=== PATIENT | male | born 1935 | race Caucasian/White ===

== ENCOUNTER 2018-10-20 09:10 | Outpatient (CLI) | payer MEDICARE, OTHER ==
[~2018-10-20] VITALS: Ht 177.8 cm; Wt 42.5 kg
[2018-10-20 09:49] LABS: HEMATOCRIT 38.3 % (42.0-52.0); HEMOGLOBIN 12.2 g/dl (13.5-18.0); MEAN CELL VOLUME 87 fl (80.0-100.0); MEAN CORPUSCULAR HEMOGLOBIN 28 pg (27.0-31.0); MEAN CORPUSCULAR HGB CONC 32 g/dl (33.0-37.0); MEAN PLATELET VOLUME 9.4 fl (7.4-10.4); PLATELET COUNT 294 K/mm3 (130-400); RED BLOOD COUNT 4.41 M/mm3 (4.20-5.60); REDCELL DISTRIBUTION WIDTH-CV 15.9 % (11.5-14.5)
[2018-10-20] MEDS ORDERED: ASPIRIN 32325 MG/TAB PO (09:52)
[2018-10-20] MEDS ORDERED: MULTIPLE VITAMI1 CAP PO (09:52)
[2018-10-20] MEDS ORDERED: ZYLOPRIM 300MG300 MG PO (09:53)
[2018-10-20] MEDS ORDERED: LIORESAL 1010 MG/TAB PO (09:53)
[2018-10-20] MEDS ORDERED: CEPHALEXIN500 M1 PO (09:54)
[2018-10-20] MEDS ORDERED: TYLENOL 500MG500 MG PO (09:55)
[2018-10-20 09:57] LABS: INR 1.1 (0.8-3.0); PROTHROMBIN TIME 12.5 SECONDS (9.7-12.8)
[2018-10-20 10:04] VITALS: BP 135/58; PULSE 80; TEMP 98.1
[2018-10-20 10:04] LABS: CALCIUM 10.3 mg/dL (8.4-10.2); CREATININE, serum 0.8 mg/dL (0.66-1.25); POTASSIUM 4.4 mmol/L (3.4-5.0)
[2018-10-20 11:30] VITALS: BP 111/58; PULSE 74; TEMP 98.1
[2018-10-20 11:45] VITALS: BP 111/58; PULSE 74
[2018-10-20 12:00] VITALS: BP 114/54; PULSE 73
[2018-10-20 12:15] VITALS: BP 124/55; PULSE 76
== END 2018-10-20 12:40 | disposition home or self-care (01) ==
LOC: COL.RAD 09:10
PROVIDERS: Internal Medicine Cardiovascular Disease
DX: I38 Endocarditis, valve unspecified (principal); I34.0 Nonrheumatic mitral (valve) insufficiency; R93.1 Abnormal findings on diagnostic imaging of heart and coronary circulation